=== PATIENT | female | born 1980 | race African-American/Black ===

== ENCOUNTER 2016-11-12 17:08 | Observation (INO) | payer OTHER ==
[~2016-11-12 17:08] MED LIST: NOCURR
[2016-11-12 17:30] VITALS: BP 97/58
[2016-11-12] MEDS ORDERED: PREN1TAB80 PO (17:42)
[2016-11-12] MEDS ORDERED: ACETAMINOPHEN 325 MG TABLET PO ONE (18:15)
[2016-11-12 19:17] LABS: APPEARANCE,URINE CLEAR (CLEAR); GLUCOSE, URINE (UA) NEGATIVE (NEGATIVE); KETONES,URINE NEGATIVE (NEGATIVE); LEUKOCYTE ESTERASE ,URINE NEGATIVE (NEGATIVE); OCCULT BLOOD,URINE NEGATIVE (NEGATIVE); PROTEIN,URINE TRACE (NEGATIVE)
[2016-11-12 19:21] LABS: ADD UA MICROSCOPIC NO
== END 2016-11-12 21:38 | disposition home or self-care (01) ==
LOC: 4S 17:08
PROVIDERS: ADMIT Obstetrics & Gynecology; ATTEND Obstetrics & Gynecology
DX: O26.892 Other specified pregnancy related conditions, second trimester (principal); R10.2 Pelvic and perineal pain; R10.9 Unspecified abdominal pain; Z3A.20 20 weeks gestation of pregnancy
CPT/HCPCS: 59025; 76811; 80307 ×8; 81003; G0378